=== PATIENT | female | born 1970 | race Caucasian/White ===

== ENCOUNTER 2019-05-14 21:14 | Inpatient (IN) ==
[2019-05-15] MEDS ORDERED: Naloxone 0.4 MG/ML INJ IVP PRN (03:08)
[2019-05-15] MEDS ORDERED: 0.9 % Sodium Chloride 1,000 ML IVC SCH (03:15)
[2019-05-15 03:33] LABS: Basophils # 0.1 K/mcL (0.0-0.2); Basophils % 0.3 %; Eosinophils # 0.1 K/mcL (0.0-0.6); Eosinophils % 0.6 %; Hematocrit 40.6 % (35.3-44.9); Hemoglobin 13.9 g/dL (11.5-15.4); Immature Granulocytes % 0.4 % (0-4); Lymphocytes # 3.1 K/mcL (0.6-4.6); Lymphocytes % 18.8 %; Mean Corpuscular HGB Conc 34.2 g/dL (31.6-35.5); Mean Corpuscular Hemoglobin 28.8 pg (28.0-33.3); Mean Corpuscular Volume 84.2 fL (83.0-100.0); Mean Platelet Volume 10.5 fL (9.4-12.4); Monocytes # 1.5 K/mcL (0.0-1.3); Monocytes % 9.1 %; Neutrophils # 11.6 K/mcL (1.6-8.9); Platelet Count 274 K/mcL (140-400); Red Blood Count 4.82 M/mcL (3.82-4.97); Red Cell Distribution Width 12.9 % (11.5-14.5); Segmented Neutrophils % 70.8 %; White Blood Count 16.3 K/mcL (4.3-11.1)
[2019-05-15 03:48] LABS: Alanine Aminotransferase 12 Units/L (7-52); Albumin 3.7 g/dL (3.5-5.7); Albumin/Globulin Ratio 1.1 (1.1-2.2); Alkaline Phosphatase 75 Units/L (34-104); Aspartate Amino Transferase 13 Units/L (13-39); BUN/Creatinine Ratio 23 (6-26); Bilirubin,Total 0.4 mg/dL (0.3-1.0); Blood Urea Nitrogen 19 mg/dL (6-20); Calcium 9.2 mg/dL (8.6-10.3); Carbon Dioxide 25 mEq/L (23-29); Chloride 99 mEq/L (98-107); Globulin 3.4 g/dL (2.4-3.5); Glucose 267 mg/dL (70-105); Magnesium 1.9 mg/dL (1.6-2.6); Osmolality,Calculated 292 (280-300); Phosphorous 3.7 mg/dL (2.7-4.5); Potassium 3.7 mEq/L (3.5-5.1); Sodium 135 mEq/L (136-145); Total Protein 7.1 g/dL (6.4-8.9); Troponin I < 0.03 ng/mL (< 0.04); eGFR For African Americans > 60 (> 60); eGFR For Non-African Americans > 60 (> 60)
[2019-05-15 04:02] LABS: Thyroid Stimulating Hormone 0.905 mcIU/mL (0.340-5.600)
[2019-05-15] MEDS ORDERED: Ringers Solution, Lactated 1,000 ML IVC ONE (05:14)
[2019-05-15] MEDS ORDERED: Dextrose Gel 15 GM/37.5 ML TUBE PO PRN ×2 (05:18)
[2019-05-15] MEDS ORDERED: *HR* Dextrose 50 % in Water (Syg) 50 ML SYRINGE IVP PRN (05:18)
[2019-05-15] MEDS ORDERED: D5% in Water 1,000 ML IVC PRN (05:18)
[2019-05-15] MEDS: *HR* Heparin 5,000 UNIT/ML VIAL SQ SCH ×2 (05:56→17:04)
[2019-05-15 06:25] LABS: Bilirubin,Urine Negative (Negative); Blood,Urine Negative (Negative); Clarity,Urine Clear (Clear); Color,Urine Yellow (Yellow); Glucose,Urine (UA) >=1000 mg/dL (Normal); Ketones,Urine Trace mg/dL (Negative); Leukocyte Esterase,Urine Negative (Negative); Nitrite,Urine Negative (Negative); PH,Urine 5.5 pH Units (5.0-8.0); Protein,Urine Negative (Neg-Trace); Specific Gravity,Urine > 1.030 (1.010-1.025); Urobilinogen,Urine Normal (Normal)
[2019-05-15 08:29] LABS: Estimated Average Glucose 275 mg/dl
[2019-05-15] MEDS: Insulin LISPRO 300 UNITS/3 ML VIAL SQ SCH ×3 (09:07→17:04)
[2019-05-16] MEDS: *HR* Heparin 5,000 UNIT/ML VIAL SQ SCH ×2 (05:20→17:53)
[2019-05-16 08:15] LABS: Basophils # 0.1 K/mcL (0.0-0.2); Basophils % 0.6 %; Eosinophils # 0.1 K/mcL (0.0-0.6); Hematocrit 41.2 % (35.3-44.9); Hemoglobin 13.6 g/dL (11.5-15.4); Immature Granulocytes % 0.5 % (0-4); Lymphocytes # 3.2 K/mcL (0.6-4.6); Lymphocytes % 33.9 %; Mean Corpuscular Hemoglobin 28.5 pg (28.0-33.3); Mean Corpuscular Volume 86.4 fL (83.0-100.0); Mean Platelet Volume 10.3 fL (9.4-12.4); Monocytes # 0.8 K/mcL (0.0-1.3); Monocytes % 8.2 %; Neutrophils # 5.3 K/mcL (1.6-8.9); Platelet Count 237 K/mcL (140-400); Red Blood Count 4.77 M/mcL (3.82-4.97); Red Cell Distribution Width 13.1 % (11.5-14.5); Segmented Neutrophils % 55.8 %; White Blood Count 9.6 K/mcL (4.3-11.1)
[2019-05-16 08:28] LABS: BUN/Creatinine Ratio 24 (6-26); Blood Urea Nitrogen 15 mg/dL (6-20); Calcium 8.9 mg/dL (8.6-10.3); Carbon Dioxide 26 mEq/L (23-29); Chloride 102 mEq/L (98-107); Glucose 227 mg/dL (70-105); Osmolality,Calculated 290 (280-300); Potassium 3.9 mEq/L (3.5-5.1); Sodium 136 mEq/L (136-145); eGFR For African Americans > 60 (> 60); eGFR For Non-African Americans > 60 (> 60)
[2019-05-16] MEDS: Insulin LISPRO 300 UNITS/3 ML VIAL SQ SCH ×6 (08:48→17:54)
[2019-05-16] MEDS ORDERED: Gadolinium Contrast Agent (WT Based) IV PRN (09:58)
[2019-05-16] MEDS ORDERED: Insulin DETEMIR 100 UNIT/ML X5UNITS SQ SCH (21:00)
[2019-05-17] MEDS: *HR* Heparin 5,000 UNIT/ML VIAL SQ SCH ×2 (06:03→17:56)
[2019-05-17] MEDS ORDERED: diazePAM 10 MG/2 ML SYRINGE IVP ONE (08:33)
[2019-05-17] MEDS: Insulin LISPRO 300 UNITS/3 ML VIAL SQ SCH ×6 (08:37→17:57)
[2019-05-17] MEDS ORDERED: Isovue-370 500 ML BOTTLE IVP ONE ×2 (11:39→11:43)
[2019-05-17] MEDS: Cholecalciferol (D-3) 1,000 UNIT (25MCG) TABLET PO SCH (11:42)
[2019-05-17] MEDS: Magnesium Oxide 400 MG TABLET PO SCH (11:42)
[2019-05-17] MEDS: Niacin (24 HR) 500 MG TAB.ER.24H PO SCH (11:42)
[2019-05-17 13:47] LABS: Red Blood Cell,CSF < 0.002 M/mcL
[2019-05-17 13:55] LABS: Glucose,CSF 107 mg/dL (40-70); Total Protein,CSF 45 mg/dL (15-45)
[2019-05-17 14:08] LABS: Appearance,CSF Clear (Clear)
[2019-05-17 21:34] LABS: Basophils,CSF 0 %; Eosinophils,CSF 0 %; Lymphocytes,CSF 100 %; Monocytes,CSF 0 %; Other Cells,CSF 0 %
[2019-05-17] MEDS: Insulin DETEMIR 100 UNIT/ML X5UNITS SQ SCH (22:14)
[2019-05-18] MEDS: *HR* Heparin 5,000 UNIT/ML VIAL SQ SCH (05:08)
[2019-05-18 05:56] LABS: Hematocrit 47.1 % (35.3-44.9); Mean Corpuscular HGB Conc 33.1 g/dL (31.6-35.5); Mean Corpuscular Hemoglobin 28.7 pg (28.0-33.3); Mean Corpuscular Volume 86.7 fL (83.0-100.0); Mean Platelet Volume 10.6 fL (9.4-12.4); Platelet Count 263 K/mcL (140-400); Red Blood Count 5.43 M/mcL (3.82-4.97); Red Cell Distribution Width 12.9 % (11.5-14.5); White Blood Count 13.1 K/mcL (4.3-11.1)
[2019-05-18 06:00] LABS: Hemoglobin 15.6 g/dL (11.5-15.4)
[2019-05-18 06:16] LABS: BUN/Creatinine Ratio 28 (6-26); Blood Urea Nitrogen 18 mg/dL (6-20); Calcium 9.6 mg/dL (8.6-10.3); Carbon Dioxide 22 mEq/L (23-29); Chloride 100 mEq/L (98-107); Glucose 344 mg/dL (70-105); Osmolality,Calculated 294 (280-300); Sodium 134 mEq/L (136-145); eGFR For African Americans > 60 (> 60); eGFR For Non-African Americans > 60 (> 60)
[2019-05-18 07:44] VITALS: BP 151/86
[2019-05-18] MEDS: Cholecalciferol (D-3) 1,000 UNIT (25MCG) TABLET PO SCH (08:56)
[2019-05-18] MEDS: Niacin (24 HR) 500 MG TAB.ER.24H PO SCH (08:56)
[2019-05-18] MEDS: Magnesium Oxide 400 MG TABLET PO SCH (08:56)
[2019-05-18] MEDS: Insulin LISPRO 300 UNITS/3 ML VIAL SQ SCH ×2 (08:58)
[2019-05-18] MEDS: Insulin DETEMIR 100 UNIT/ML X5UNITS SQ SCH (08:59)
[2019-05-18] MEDS ORDERED: Loratadine 10 MG TABLET PO SCH (09:00)
[2019-05-19 10:08] LABS: Albumin Index 6.6 ratio (0.0-9.0); Albumin by Nephelometry 3020 mg/dL (3500-5200); IgG CSF 9.1 mg/dL (0.0-6.0)
[2019-05-20 11:19] LABS: IgG Serum 1100 mg/dL (768-1632)
[2019-05-21 10:00] LABS: Toxoplasma gondii Source CSF
== END 2019-05-18 12:07 | disposition home or self-care (01) | DRG 59 ==
LOC: 3BNU
PROVIDERS: ADMIT Family Medicine; ATTEND Family Medicine